=== PATIENT | male | born 1965 | race Hispanic/Latino ===

== ENCOUNTER 2018-02-17 06:04 | Day surgery (SDC) | payer OTHER ==
[~2018-02-17] VITALS: Ht 167.6 cm; Wt 96.0 kg
[2018-02-17 06:37] VITALS: BP 136/69
[2018-02-17] MEDS ORDERED: SODIUM CHLORIDE 0.9% 1000ML 1,000 ML IV ONE (06:38)
[2018-02-17] MEDS ORDERED: FOLI1TAB85 PO (07:09)
[2018-02-17] MEDS ORDERED: CHOL100040 PO (07:09)
[2018-02-17] MEDS ORDERED: PANT40TA25 PO (07:09)
[2018-02-17] MEDS ORDERED: [UNRECOGNIZED DRUG - OTHER] PO (07:09)
[2018-02-17] MEDS ORDERED: MAG OXIDE (07:09)
[2018-02-17] MEDS ORDERED: GLIP5TAB11 PO (07:09)
[2018-02-17] MEDS ORDERED: ATOR20TA65 PO (07:09)
[2018-02-17] MEDS ORDERED: PROPOFOL 10 MG/ML 20ML VIAL IV ONE (07:34)
[2018-02-17] MEDS ORDERED: LIDOCAINE HCL 1% 20 ML VIAL ONE (07:35)
[2018-02-17] MEDS ORDERED: FENTANYL CITRATE PF 50 MCG/1 ML 2ML VIAL ONE (07:35)
[2018-02-17 08:00] VITALS: BP 124/60
== END 2018-02-17 08:34 ==
LOC: ENDO 06:04 → DAH 06:04 → ENDO 08:34
PROVIDERS: ATTEND Internal Medicine Gastroenterology
DX: Z12.11 Encounter for screening for malignant neoplasm of colon (principal); I10 Essential (primary) hypertension; I25.10 Atherosclerotic heart disease of native coronary artery without angina pectoris; E78.5 Hyperlipidemia, unspecified; E66.9 Obesity, unspecified; E11.9 Type 2 diabetes mellitus without complications; Z86.73 Personal history of transient ischemic attack (TIA), and cerebral infarction without residual deficits; Z87.442 Personal history of urinary calculi; Z79.84 Long term (current) use of oral hypoglycemic drugs; Z95.2 Presence of prosthetic heart valve; Z79.899 Other long term (current) drug therapy; Z83.3 Family history of diabetes mellitus; Z82.49 Family history of ischemic heart disease and other diseases of the circulatory system; Z68.41 Body mass index [BMI] 40.0-44.9, adult
CPT/HCPCS: 82948; A4606; G0121; J2704; J3010; J7030

== ENCOUNTER 2018-03-01 16:11 | Emergency (ER) | payer OTHER ==
[~2018-03-01 16:11] MED LIST: ATOR20TA65 PO; CHOL100040 PO; FOLI1TAB85 PO; GLIP5TAB11 PO; MAG OXIDE; PANT40TA25 PO; [UNRECOGNIZED DRUG - OTHER] PO
[2018-03-01 16:46] LABS: APPEARANCE,URINE Clear (CLEAR); BILIRUBIN,URINE Small (NEGATIVE); COLOR,URINE Dark Yellow (YELLOW); GLUCOSE, URINE (UA) Negative (NEGATIVE); KETONES,URINE Negative (NEGATIVE); LEUKOCYTE ESTERASE ,URINE Small (NEGATIVE); NITRATE,URINE Negative (NEGATIVE); OCCULT BLOOD,URINE Negative (NEGATIVE); PROTEIN,URINE POS 1+ (NEGATIVE)
[2018-03-01 16:53] LABS: RBC,URINE 0-1 /HPF (0-1); SQUAMOUS EPITHELIAL CELL,UR Rare /HPF (0-2)
[2018-03-01 16:54] LABS: BACTERIA,URINE Few /HPF (None Seen)
[2018-03-01 17:18] LABS: BASOPHILS % (AUTO) 0.4 % (0.0-5.0); CREATININE 3.1 mg/dL (0.5-1.5); EOSINOPHILS % (AUTO) 4.9 % (0.0-8.0); HEMATOCRIT 35.7 % (42-54); LYMPHOCYTES % (AUTO) 10.7 % (21.0-51.0); MEAN CORPUSCULAR HGB CONC 34.4 g/dL (32.0-36.0); MEAN CORPUSCULAR VOLUME 84.4 fL (79-99); MONOCYTES % (AUTO) 3.8 % (3.0-13.0); NEUTROPHILS % (AUTO) 80.2 % (40.0-77.0); NUCLEATED RED BLOOD CELLS 0.1 % (0.0-0.19); PLATELET COUNT (AUTO) 173 K/uL (130-400); RED BLOOD CELL COUNT(AUTO) 4.23 MIL/uL (4.50-6.20); RED CELL DISTRIBUTION WIDTH 13.8 % (11.0-15.5); WHITE BLOOD COUNT (AUTO) 6.6 K/uL (4.8-10.8)
[2018-03-01 17:21] LABS: ALBUMIN 4.1 g/dL (3.5-5.0); BILIRUBIN,TOTAL 1.8 mg/dL (0.2-1.0); TOTAL PROTEIN, SERUM 8.5 g/dL (6.0-8.3)
[2018-03-01 17:42] LABS: PLATELET MORPHOLOGY PLT CLUMPS PRESENT
[2018-03-04 06:17] LABS: HEPATITIS A ANTIBODY IGM Negative (Negative); HEPATITIS B CORE IGM Negative (Negative); HEPATITIS Bs ANTIGEN SCREEN P Negative (Negative)
== END 2018-03-01 22:46 | disposition home or self-care (01) ==
LOC: EDH 16:11
DX: K75.9 Inflammatory liver disease, unspecified (principal); Z86.73 Personal history of transient ischemic attack (TIA), and cerebral infarction without residual deficits
CPT/HCPCS: 36415; 76705; 80053; 80074; 81001; 82150; 83690; 85025; 96374

== ENCOUNTER 2018-12-15 06:11 | Day surgery (SDC) | payer OTHER ==
[2018-12-12 16:20] VITALS: BP 148/76
[2018-12-12 16:41] LABS: CREATININE 2.5 mg/dL (0.5-1.5); POTASSIUM 4.1 mmol/L (3.5-5.1)
--- NOTE | 2018-12-12 17:19 | NUR ---
ABNORMAL LABS DR. DEMARCO NOTIFIED OF PT'S BUN 25, CREAT 2.5, K 4.1. NO FURTHER ORDERS GIVEN. MAY PROCEED.
[~2018-12-15] VITALS: Ht 170.2 cm; Wt 98.3 kg
[2018-12-15] VITALS (13 sets, daily range): BP systolic 112–143; BP diastolic 59–77
[2018-12-15] MEDS: CEFAZOLIN SODIUM 1 GM VIAL IVP SCH ×2 (06:00→08:20)
[~2018-12-15 06:11] MED LIST changes: +AMLO5TAB9 PO; +FERR-82 PO; +GABA-529 PO; +MAG OX PO; -MAG OXIDE
[2018-12-15] MEDS ORDERED: SODIUM CHLORIDE 0.9% 1000ML 1,000 ML IV ONE (06:59)
[2018-12-15] MEDS ORDERED: LIDOCAINE PF 2% 5ML ABBOJECT ONE (08:17)
[2018-12-15] MEDS ORDERED: PROPOFOL 10 MG/ML 20ML VIAL IV ONE (08:17)
[2018-12-15] MEDS ORDERED: FENTANYL CITRATE PF 50 MCG/1 ML 2ML VIAL ONE (08:18)
[2018-12-15] MEDS ORDERED: BUPIVACAINE/PF 0.25% 30ML VIAL IJ ONE (08:37)
[2018-12-15] MEDS ORDERED: CEFAZOLIN SODIUM 1 GM VIAL ONE (08:49)
[2018-12-15] MEDS ORDERED: ONDANSETRON HCL 4 MG/2 ML VIAL ONE (09:24)
[2018-12-15] MEDS ORDERED: KETOROLAC TROMETHAMINE 30MG/ML ONE ×2 (09:24→09:37)
[2018-12-15] MEDS ORDERED: TYL3 PO (09:26)
[2018-12-15] MEDS ORDERED: CEPH500B PO (09:26)
[2018-12-15] MEDS ORDERED: MEPERIDINE-PF 25 MG/ML SYG ONE (09:38)
== END 2018-12-15 11:30 | disposition home or self-care (01) ==
LOC: DAH 06:11
PROVIDERS: ATTEND Orthopaedic Surgery
DX: G56.01 Carpal tunnel syndrome, right upper limb (principal); Z68.34 Body mass index [BMI] 34.0-34.9, adult; I13.10 Hypertensive heart and chronic kidney disease without heart failure, with stage 1 through stage 4 chronic kidney disease, or unspecified chronic kidney disease; E11.22 Type 2 diabetes mellitus with diabetic chronic kidney disease; N18.9 Chronic kidney disease, unspecified; Z79.84 Long term (current) use of oral hypoglycemic drugs; Z79.899 Other long term (current) drug therapy; E78.00 Pure hypercholesterolemia, unspecified; Z86.73 Personal history of transient ischemic attack (TIA), and cerebral infarction without residual deficits; E11.40 Type 2 diabetes mellitus with diabetic neuropathy, unspecified; Z95.1 Presence of aortocoronary bypass graft; Z98.890 Other specified postprocedural states; Z83.3 Family history of diabetes mellitus; Z82.49 Family history of ischemic heart disease and other diseases of the circulatory system; Z80.1 Family history of malignant neoplasm of trachea, bronchus and lung
CPT/HCPCS: 36415; 64721; 80048; 82948 ×2; A4215; A4218; A4649; A4930; A6223; J0690 ×2; J1885; J2001; J2175; J2405; J2704; J3010; J3490; J7030

== ENCOUNTER → 2022-08-22 | Outpatient (CLI) | payer OTHER ==
[~2022-08-22] MED LIST changes: +AMLO-257 PO; -AMLO5TAB9 PO; +CEPH500B PO; -PANT40TA25 PO; +PANT40TA54 PO; +TYL3 PO
== END | disposition home or self-care (01) ==
LOC: RAH 15:06
PROVIDERS: ATTEND Internal Medicine
DX: R93.89 Abnormal findings on diagnostic imaging of other specified body structures (principal)
CPT/HCPCS: 71250

== ENCOUNTER → 2022-11-20 | Outpatient (CLI) | payer OTHER | END | disposition home or self-care (01) | LOC: SHCH 15:04 | PROVIDERS: ATTEND Internal Medicine Cardiovascular Disease | DX: I08.3 Combined rheumatic disorders of mitral, aortic and tricuspid valves (principal); I11.9 Hypertensive heart disease without heart failure; E78.5 Hyperlipidemia, unspecified; Z95.3 Presence of xenogenic heart valve | CPT/HCPCS: 93306 ==

== ENCOUNTER → 2022-12-03 | Outpatient (CLI) | payer OTHER ==
[~2022-12-03] MED LIST changes: +0.9% NACL 500ML IV.SOLN 500 ML IV SCH
[2022-12-03 11:57] LABS: BASOPHILS % (AUTO) 0.4 % (0.0-5.0); EOSINOPHILS % (AUTO) 5.6 % (0.0-8.0); HEMATOCRIT 38.9 % (42-54); LYMPHOCYTES % (AUTO) 24.9 % (21.0-51.0); MEAN CORPUSCULAR HEMOGLOBIN 27.4 pg (27.0-33.0); MEAN CORPUSCULAR HGB CONC 34.2 g/dL (32.0-36.0); MEAN CORPUSCULAR VOLUME 80.2 fL (79-99); MONOCYTES % (AUTO) 6.2 % (3.0-13.0); NEUTROPHILS % (AUTO) 62.5 % (40.0-77.0); PLATELET COUNT (AUTO) 171 K/uL (130-400); RED BLOOD CELL COUNT(AUTO) 4.85 MIL/uL (4.50-6.20); RED CELL DISTRIBUTION WIDTH 13.8 % (11.0-15.5); WHITE BLOOD COUNT (AUTO) 7.1 K/uL (4.8-10.8)
[2022-12-03 12:23] LABS: B-TYPE NATRIURETIC PEPTIDE 101 pg/mL (0-100)
[2022-12-03 12:24] LABS: INR 0.96 (0.85-1.15); PROTHROMBIN TIME 10.5 SEC (9.6-11.6)
[2022-12-03 12:25] LABS: PARTIAL THROMBOPLASTIN TIME 32.2 SEC (26.3-35.5)
[2022-12-03 13:22] LABS: CREATININE 2.3 mg/dL (0.5-1.5); POTASSIUM 4.5 mmol/L (3.5-5.1)
== END | disposition home or self-care (01) ==
LOC: DAH 10:00 → EDSTATUS 14:00
PROVIDERS: ATTEND Internal Medicine Cardiovascular Disease
DX: Z01.810 Encounter for preprocedural cardiovascular examination (principal); I35.0 Nonrheumatic aortic (valve) stenosis; Z79.01 Long term (current) use of anticoagulants; Z79.899 Other long term (current) drug therapy
CPT/HCPCS: 36415; 71045; 80048; 83880; 85025; 85610; 85730; 93005

== ENCOUNTER → 2023-10-04 | Outpatient (CLI) | payer OTHER ==
[~2023-10-04] MED LIST changes: -0.9% NACL 500ML IV.SOLN 500 ML IV SCH; -GLIP5TAB11 PO; +GLIP5TAB15 PO
== END | disposition home or self-care (01) ==
LOC: RAH 10:35
PROVIDERS: ATTEND Internal Medicine Cardiovascular Disease
DX: I35.9 Nonrheumatic aortic valve disorder, unspecified (principal); I10 Essential (primary) hypertension
CPT/HCPCS: 93306